=== PATIENT | female | born 1980 | race African-American/Black ===

== ENCOUNTER 2024-06-25 12:40 | Inpatient (IN) | payer SELFPAY ==
[~2024-06-25] VITALS: Ht 320 cm; Wt 81.6 kg
[2024-06-25 13:14] LABS: HEMATOCRIT. 35.9 % (36.0-48.0); MEAN CORPUSCULAR HEMOGLOBIN 30.1 pg (28.0-32.0); MEAN CORPUSCULAR HGB CONC 33.5 g/dL (31.0-37.0); MEAN CORPUSCULAR VOLUME 89.8 fL (81.0-99.0); MEAN PLATELET VOLUME 7.2 fl (7.4-10.4); PLATELET 241 x1000/uL (130-400); RED CELL DISTRIBUTION WIDTH 15.7 % (11.6-14.6); WHITE BLOOD COUNT 6.6 x1000/uL (4.5-11.0)
[2024-06-25 13:19] LABS: CHLORIDE 101 mEq/L (98-107); DIFFERENTIAL COMMENT 1; SODIUM 139 mEq/L (136-145)
[2024-06-25 13:20] LABS: CALCIUM 9.8 mg/dL (8.7-10.4); CARBON DIOXIDE 31 mEq/L (21-32)
[2024-06-25 13:24] LABS: TROPONIN I HIGH SENSITIVITY 6 ng/L (3.0-34)
[2024-06-25 13:25] LABS: CREATININE 1.3 mg/dL (0.6-1.0); GLUCOSE 65 mg/dL (70-105); UREA NITROGEN BLOOD 8 mg/dL (9-23)
[2024-06-25 13:44] LABS: THYROID STIMULATING HORMONE > 150.00 uIU/mL (0.55-4.78)
[2024-06-25] MEDS ORDERED: LEVOTHYROXINE SODIUM 112MCG TABLET PO ONE (14:00)
[2024-06-25] MEDS: SODIUM CHLORIDE 0.9% 1,000 ML IV NR (14:28)
[2024-06-25] MEDS: HYDROCORTISONE SOD SUCCINATE 100 MG/2 ML VIAL IV NR (14:41)
[2024-06-25 14:46] LABS: CLARITY URINE CLEAR (CLEAR); COLOR URINE YELLOW (YELLOW); GLUCOSE URINE NEGATIVE (NEGATIVE); KETONES URINE NEGATIVE (NEGATIVE); LEUKOCYTE ESTERASE URINE TRACE (NEGATIVE); NITRITE URINE NEGATIVE (NEGATIVE); OCCULT BLOOD URINE NEGATIVE (NEGATIVE); PROTEIN URINE TRACE (NEGATIVE); SPECIFIC GRAVITY URINE 1.022 (1.005-1.030)
[2024-06-25] MEDS: LEVOTHYROXINE SODIUM 100 MCG/ VIAL IV NR (14:46)
[2024-06-25 15:15] LABS: T4 FREE 0.22 ng/dL (0.89-1.76)
[2024-06-25 15:45] LABS: BACTERIA URINE 1+; RBC URINE 0-2 /hpf (0-2); SQUAMOUS EPITHELIAL CELL URINE 1+ /lpf (RARE/1+); WBC URINE 0-2 /hpf (0-2)
[2024-06-25 18:00] LABS: ANISOCYTOSIS 1+; PLATELET ESTIMATE NORMAL
[2024-06-26] MEDS ORDERED: ONDANSETRON HCL 4MG/2ML INJ IV PRN (10:15)
[2024-06-26] MEDS ORDERED: DOCUSATE SODIUM 100MG CAPSULE PO PRN (10:15)
[2024-06-26] MEDS ORDERED: ACETAMINOPHEN 325MG TABLET PO PRN ×2 (10:15)
[2024-06-26] MEDS ORDERED: CLONIDINE 0.1MG TABLET PO PRN (10:15)
[2024-06-26] MEDS ORDERED: IPRATROPIUM/ALBUTEROL 0.5-3(2.5)MG/3ML NEB HHN PRN (10:15)
[2024-06-26] MEDS: LEVOTHYROXINE SODIUM 75MCG TABLET PO SCH (11:31)
[2024-06-26] MEDS: CEFTRIAXONE 1GM/50ML 50 ML IV SCH (11:31)
[2024-06-26] MEDS: DEXT 5%/0.45% NACL 1000ML 1,000 ML IV SCH (11:32)
[2024-06-26] MEDS: HYDRALAZINE HCL 25MG TABLET PO SCH (14:00)
[2024-06-26 16:13] LABS: BASOPHILS % 0.7 % (0.0-2.0); EOSINOPHILS % 0.3 % (0.0-5.0); HEMATOCRIT. 36.6 % (36.0-48.0); LYMPHOCYTES % 32.5 % (20.0-50.0); MEAN CORPUSCULAR HEMOGLOBIN 30.1 pg (28.0-32.0); MEAN CORPUSCULAR HGB CONC 32.9 g/dL (31.0-37.0); MEAN CORPUSCULAR VOLUME 91.5 fL (81.0-99.0); MEAN PLATELET VOLUME 7.7 fl (7.4-10.4); MONOCYTES % 3.3 % (2.0-8.0); NEUTROPHILS % 63.2 % (40.0-76.0); PLATELET 225 x1000/uL (130-400); RED CELL DISTRIBUTION WIDTH 16.2 % (11.6-14.6); WHITE BLOOD COUNT 10.3 x1000/uL (4.5-11.0)
[2024-06-26 16:27] LABS: CHLORIDE 104 mEq/L (98-107); POTASSIUM 3.2 mEq/L (3.5-5.1); SODIUM 138 mEq/L (136-145)
[2024-06-26 16:31] LABS: CALCIUM 9.1 mg/dL (8.7-10.4); CARBON DIOXIDE 27 mEq/L (21-32)
[2024-06-26 16:36] LABS: ALANINE AMINOTRANSFERASE 65 IU/L (10-49); CREATININE 1.1 mg/dL (0.6-1.0); GLUCOSE 148 mg/dL (70-105); PROTHROMBIN TIME 11.4 sec (9.6-11.0); UREA NITROGEN BLOOD 9 mg/dL (9-23)
[2024-06-26 16:38] LABS: ALBUMIN 4.1 g/dL (3.2-4.8); ASPARTATE AMINOTRANSFERASE 78 IU/L (<34); BILIRUBIN DIRECT 0.2 mg/dL (<=3.0); BILIRUBIN TOTAL 0.9 mg/dL (0.1-1.0); PROTEIN TOTAL 6.8 g/dL (6.0-8.3)
[2024-06-26 18:30] VITALS: BP 95/70; PULSE 70; RESP 18; TEMP 98.1
[2024-06-26 20:00] VITALS: BP 100/60; PULSE 65; RESP 18; TEMP 98.1
[2024-06-26] MEDS: POTASSIUM CHLORIDE 20MEQ TABLET SR PO NR (20:35)
[2024-06-26 21:38] LABS: *AMPHETAMINES SCREEN URINE NEGATIVE (NEGATIVE); *BARBITURATES SCREEN URINE NEGATIVE (NEGATIVE); *BENZODIAZEPINES SCREEN URINE NEGATIVE (NEGATIVE); *COCAINE SCREEN URINE NEGATIVE (NEGATIVE); CANNABINOID URINE SCREEN PRESUMPTIVE POSITIVE (NEGATIVE); METHADONE URINE SCREEN NEGATIVE (NEGATIVE); OPIATES URINE SCREEN NEGATIVE (NEGATIVE); PHENCYCLIDINE URINE SCREEN NEGATIVE (NEGATIVE)
[2024-06-26 21:40] LABS: ECSTASY MDMA SCREEN URINE NEGATIVE (NEGATIVE)
[2024-06-26] MEDS ORDERED: LEVO75TA85 MT (22:01)
[2024-06-26 22:07] VITALS: BP 100/60; PULSE 63; RESP 18; TEMP 98.1
[2024-06-27] VITALS: BP 95/58; PULSE 54; RESP 18; TEMP 97.7
[2024-06-27] MEDS: HYDROCODONE/ACETAMINOPHEN 5/325MG TABLET PO NR (03:41)
[2024-06-27 04:00] VITALS: BP 100/64; PULSE 65; RESP 18; TEMP 99
[2024-06-27 07:03] LABS: POTASSIUM 3.6 mEq/L (3.5-5.1)
[2024-06-27 07:04] LABS: BASOPHILS % 1.3 % (0.0-2.0); EOSINOPHILS % 0.9 % (0.0-5.0); HEMATOCRIT. 34.5 % (36.0-48.0); HEMOGLOBIN. 11.4 g/dL (12.0-16.0); LYMPHOCYTES % 38.3 % (20.0-50.0); MEAN CORPUSCULAR HEMOGLOBIN 30.2 pg (28.0-32.0); MEAN CORPUSCULAR VOLUME 91.4 fL (81.0-99.0); MEAN PLATELET VOLUME 7.5 fl (7.4-10.4); MONOCYTES % 4.1 % (2.0-8.0); NEUTROPHILS % 55.4 % (40.0-76.0); PLATELET 214 x1000/uL (130-400); RED BLOOD CELL COUNT 3.77 mill/uL (4.2-5.4); RED CELL DISTRIBUTION WIDTH 16.2 % (11.6-14.6); WHITE BLOOD COUNT 8.3 x1000/uL (4.5-11.0)
[2024-06-27 07:05] LABS: CALCIUM 8.6 mg/dL (8.7-10.4)
[2024-06-27 07:09] LABS: CREATININE 1.2 mg/dL (0.6-1.0)
[2024-06-27 07:47] LABS: HEPATITIS B SURFACE ANTIGEN NEGATIVE (Negative)
[2024-06-27] MEDS: LEVOTHYROXINE SODIUM 125MCG TABLET PO SCH (07:54)
[2024-06-27 08:00] VITALS: BP 117/65; PULSE 61; RESP 18; TEMP 97.9
[2024-06-27 08:08] LABS: HEPATITIS C AB NON REACTIVE (Neg) (Negative)
[2024-06-27] MEDS: FUROSEMIDE 20MG/2ML VIAL IVP SCH (11:31)
[2024-06-27 12:00] VITALS: BP_SYST 109; BP_SYST 142; BP_DIAS 74; BP_DIAS 77; PULSE 69; PULSE 73; RESP 18; TEMP 97.7; TEMP 98.1
[2024-06-27 16:00] VITALS: BP 95/61; PULSE 69; RESP 16; TEMP 97.6
[2024-06-27 20:00] VITALS: BP 99/58; PULSE 66; RESP 20; TEMP 97.9
[2024-06-28] VITALS: BP 114/58; PULSE 63; RESP 18; TEMP 97.9
[2024-06-28 04:00] VITALS: BP 115/58; PULSE 61; RESP 20; TEMP 97.8
[2024-06-28 08:00] VITALS: BP 105/74; PULSE 71; RESP 20; TEMP 98
[2024-06-28 08:57] LABS: CALCIUM 9.1 mg/dL (8.7-10.4); POTASSIUM 3.7 mEq/L (3.5-5.1)
[2024-06-28 09:03] LABS: BASOPHILS % 1.1 % (0.0-2.0); CREATININE 1.3 mg/dL (0.6-1.0); EOSINOPHILS % 1.1 % (0.0-5.0); HEMATOCRIT. 34.6 % (36.0-48.0); HEMOGLOBIN. 11.5 g/dL (12.0-16.0); LYMPHOCYTES % 40.6 % (20.0-50.0); MEAN CORPUSCULAR HGB CONC 33.3 g/dL (31.0-37.0); MEAN CORPUSCULAR VOLUME 90.1 fL (81.0-99.0); MEAN PLATELET VOLUME 7.6 fl (7.4-10.4); MONOCYTES % 5.1 % (2.0-8.0); NEUTROPHILS % 52.1 % (40.0-76.0); PLATELET 217 x1000/uL (130-400); RED BLOOD CELL COUNT 3.84 mill/uL (4.2-5.4); RED CELL DISTRIBUTION WIDTH 15.9 % (11.6-14.6); WHITE BLOOD COUNT 7.6 x1000/uL (4.5-11.0)
[2024-06-28 12:00] VITALS: BP 139/75; PULSE 82; RESP 20; TEMP 97.7
[2024-06-28] MEDS ORDERED: LEVO125T8 MT (12:15)
[2024-06-28 13:33] VITALS: BP 139/75; PULSE 82; TEMP 97.7; O2SAT 100
== END 2024-06-28 16:10 | disposition home or self-care (01) | DRG 463 ==
LOC: ER 12:40 → EDBEDREQTM 14:29 → EDBEDREQ 14:29 → 5WST 16:00 → 5EST 06-26 14:30 → 5WST 06-26 14:31 → 8WST 06-26 17:30
PROVIDERS: ADMIT Internal Medicine; ATTEND Internal Medicine
DX: N39.0 Urinary tract infection, site not specified (principal); N17.9 Acute kidney failure, unspecified; E03.9 Hypothyroidism, unspecified; Z20.822 Contact with and (suspected) exposure to COVID-19; Z91.148 Patient's other noncompliance with medication regimen for other reason
CPT/HCPCS: 36415; 71045; 80048; 80076; 80305; 81003; 82962; 84439; 84443; 84481; 84484; 85025; 86705; 87340; 87426; 93005; 97162; 99291; J0696; J1720; J1940; J3490